=== PATIENT | female | born 1980 | race Caucasian/White ===

== ENCOUNTER 2017-07-29 17:30 | Outpatient (RCR) | payer OTHER, SELFPAY | END 2017-07-29 17:31 | disposition home or self-care (01) | LOC: PT 17:30 | PROVIDERS: Family Provider Nurse Practitioner Family; PCP Nurse Practitioner Family; Visit Provider Nurse Practitioner Family | DX: S16.1XXD Strain of muscle, fascia and tendon at neck level, subsequent encounter (principal) | CPT/HCPCS: 97010; 97012; 97014; 97110; 97140; 97164; G0283 ==

== ENCOUNTER → 2017-08-27 08:00 | Outpatient (CLI) | payer OTHER, SELFPAY ==
--- NOTE | 2017-08-27 08:03 | MR_ITS ---
MR cervical spine wo con, MR 3-d myelogram/MRCP HISTORY: Neck pain ORDERING PHYSICIAN: Maddison Watson PATIENT AGE: 37 years COMPARISON: Cervical X-Ray 05/11/17 TECHNIQUE: Standard multiplanar multiecho sequences are performed without contrast. 3-D MIP and myelographic images are also rendered and reviewed FINDINGS: There is straightening of the cervical lordosis. This may be due to patient positioning or muscle spasm. The craniocervical junction has an unremarkable appearance. C2-C3 and C3-C4 have an unremarkable appearance. C4-C5: There is minimal left paracentral disc protrusion without impingement. C5-C6: There is a small central disc herniation very slightly eccentric to the left causing mild impingement upon the central aspect of the cord with mild cord flattening anteriorly with resultant canal stenosis of 8 mm. C6-C7: Very minimal bulging disc with mild disc desiccation with congenital narrowing of the canal at 9 mm. C7-T1: Unremarkable. IMPRESSION: 1. Small central disc herniation at C5-C6 very slightly eccentric to the left causing mild impingement upon the central aspect of the cord with mild cord flattening anteriorly with resultant canal stenosis of 8 mm. 2. Minimal left paracentral disc protrusion at C4-C5. 3. Minimal bulging disc at C6-C7 with congenital narrowing of the canal
--- NOTE | 2017-08-27 08:59 | US_ITS ---
US kidney retroperitoneal comp HISTORY: ITS.REASON: EDEMA ORDERING PHYSICIAN: Maddison Watson PATIENT AGE: 37 years COMPARISON: None FINDINGS: RIGHT KIDNEY:Unremarkable. Normal size and echogenicity. No hydronephrosis LEFT KIDNEY:Unremarkable. No hydronephrosis. Normal size and echogenicity. OTHER FINDINGS: No other pertinent findings IMPRESSION: Unremarkable bilateral renal ultrasound
== END ==
PROVIDERS: Family Provider Nurse Practitioner Family; PCP Nurse Practitioner Family; Visit Provider Nurse Practitioner Family
DX: M54.2 Cervicalgia (principal); M54.12 Radiculopathy, cervical region; M43.6 Torticollis
CPT/HCPCS: 72141; 76376; 76770

== ENCOUNTER → 2017-10-15 13:35 | Outpatient (POV) | payer OTHER, SELFPAY | PROVIDERS: Visit Provider Neurological Surgery | DX: Z00.00 Encounter for general adult medical examination without abnormal findings (principal) ==

== ENCOUNTER → 2018-02-15 08:35 | Outpatient (CLI) | payer OTHER, SELFPAY ==
--- NOTE | 2018-02-15 08:37 | CA_ITS ---
PROCEDURE: 2-D M-mode and color Doppler study INDICATIONS FOR THE TEST: Chest pain COPD Heart Murmur Tobacco Smoking Palpitations Fatigue Syncope Edema+ Hypertension Diabetes Mellitus Rheumatic Fever SOB+CORONA Obesity+Hyperlipidemia Family History HD Additional History PATIENT INFORMATION HEIGHT: 63 WEIGHT:246 GENDER: Female B/P:133/86 2-D/M-MODE INTERPRETATION: 2-D MEASUREMENTS OBSERVED VALUES IN CMS Right Ventricular Dimension (RVDd) 2.2 Interventricular Septum (Thickness)(IVsd) 1.0 Left Ventricular Internal Dimensions(LVIDd) 5.0 Left Ventricular Posterior Wall (Thickness)(LVPWd) 0.5 Aortic Root 2.8 Aortic Cusp Separation 1.8 Left Atrial Dimensions (LAD) 3.4 2D 1. Left atrium is qualitatively mildly enlarged, left ventricle is normal size, left ventricle wall thickness is upper limit of normal, there is preserved left ventricular systolic function, visually estimated ejection fraction of 55% with no obvious regional wall motion abnormality. 2. The right atrium and right ventricle are normal size and contractility. 3. The aortic, mitral and tricuspid valve are structurally normal. 4. The pulmonic valve is poorly visualized. 5.. Pericardial effusion noted. DOPPLER INTERROGATION: Doppler interrogation of the aortic, mitral and tricuspid valvular presence of mild mitral and tricuspid regurgitation, tricuspid regurgitation jet velocity is insufficient for calculation of the right ventricular systolic pressure, grade 1 diastolic dysfunction seen with tissue Doppler evidence of raised left atrial pressure. CONCLUSION: 1. Mildly enlarged left atrium, normal left ventricular size, visually estimated ejection fraction 55% with no obvious regional wall motion abnormality, grade 1 diastolic dysfunction seen with tissue Doppler evidence of raised left atrial pressure. 2. Mild mitral and tricuspid regurgitation 3. No significant pericardial effusion noted.
== END ==
PROVIDERS: Family Provider Nurse Practitioner Family; PCP Family Medicine; Visit Provider Internal Medicine
DX: R06.02 Shortness of breath (principal); R00.0 Tachycardia, unspecified; R60.9 Edema, unspecified
CPT/HCPCS: 93306

== ENCOUNTER → 2018-02-22 18:22 | Outpatient (CLI) | payer OTHER, SELFPAY ==
[2018-02-22 18:39] LABS: Total Volume,Urine 2150 mL (600-1600)
[2018-02-22 18:47] LABS: Total Protein 24 Hour,Urine 142 mg/24 hr (40-90); Total Protein,Urine Random 6.6 mg/dL (0.0-11.9)
== END ==
PROVIDERS: PCP Family Medicine; Visit Provider Internal Medicine
DX: N05.9 Unspecified nephritic syndrome with unspecified morphologic changes (principal); R60.9 Edema, unspecified; R00.0 Tachycardia, unspecified; R06.02 Shortness of breath
CPT/HCPCS: 84155

== ENCOUNTER → 2018-04-08 15:26 | Outpatient (CLI) | payer OTHER, SELFPAY ==
[2018-04-08 16:52] LABS: Blood Urea Nitrogen 10 mg/dL (7-18); Calcium 8.9 mg/dL (8.5-10.1); Carbon Dioxide 26 mmol/L (21.0-32.0); Chloride 101 mmol/L (98-107); Creatinine,Serum 0.79 mg/dL (0.55-1.02); Estimated Glomerular Filt Rate 81 ml/min (>60); GFR (African American) 99 ML/MIN (>60); Glucose 89 mg/dL (74-106); Sodium 136 mmol/L (136-145)
== END ==
PROVIDERS: Family Provider Nurse Practitioner Family; PCP Family Medicine; Visit Provider Urology
DX: R06.02 Shortness of breath (principal); R60.0 Localized edema; I51.9 Heart disease, unspecified; E66.01 Morbid (severe) obesity due to excess calories
CPT/HCPCS: 36415; 80048

== ENCOUNTER → 2018-04-13 15:57 | Outpatient (CLI) | payer OTHER, SELFPAY ==
[2018-04-13 20:19] LABS: Free T4 (Free Thyroxine) 0.97 ng/dl (0.76-1.46)
== END ==
PROVIDERS: PCP Nurse Practitioner Family; Visit Provider Internal Medicine
DX: E66.01 Morbid (severe) obesity due to excess calories (principal); I34.0 Nonrheumatic mitral (valve) insufficiency; I51.9 Heart disease, unspecified; R00.0 Tachycardia, unspecified; R06.02 Shortness of breath; R60.0 Localized edema
CPT/HCPCS: 36415; 84439; 84443

== ENCOUNTER → 2018-04-14 08:06 | Outpatient (CLI) | payer OTHER, SELFPAY ==
--- NOTE | 2018-04-14 08:13 | NVE_ITS ---
Venous Exam Indications: Follow-up DVT 453.40. Pt had neck surgery January 04, went to in [place] 01/10/18 CT revealed DVT in right IJV. Pt been on warfarin since 01/10/18. IMPRESSIONS Chronic deep vein thrombosis. Right upper extremity venous duplex. Doppler flow study including spectral analysis, color and moss scale imaging. Location: Vascular laboratory. Patient status: Outpatient. Tables: Venous flow and imaging: + + + Location Overall + + + Right internal jugular Partially occluded + + + (Report amended ) Electronically signed by: Warren Coleman [id number]
== END ==
PROVIDERS: Family Provider Nurse Practitioner Family; PCP Nurse Practitioner Family; Visit Provider Internal Medicine Medical Oncology
DX: I82.C11 Acute embolism and thrombosis of right internal jugular vein (principal)
CPT/HCPCS: 93971

== ENCOUNTER → 2018-04-22 14:51 | Outpatient (CLI) | payer OTHER, SELFPAY ==
[2018-04-22 15:20] LABS: INR 1.82 (0.9-1.1); Prothrombin Time 18.4 seconds (9.4-11.8)
== END ==
PROVIDERS: PCP Nurse Practitioner Family; Visit Provider Internal Medicine Medical Oncology
DX: Z51.81 Encounter for therapeutic drug level monitoring (principal); Z79.01 Long term (current) use of anticoagulants; I82.C11 Acute embolism and thrombosis of right internal jugular vein
CPT/HCPCS: 36415; 85610

== ENCOUNTER → 2018-06-08 13:29 | Outpatient (CLI) | payer OTHER, SELFPAY | PROVIDERS: PCP Nurse Practitioner Family; Visit Provider Internal Medicine Medical Oncology | DX: I82.C11 Acute embolism and thrombosis of right internal jugular vein (principal) ==

== ENCOUNTER → 2018-07-01 13:57 | Outpatient (CLI) | payer OTHER, SELFPAY ==
[2018-07-01 15:52] LABS: Blood Urea Nitrogen 22 mg/dL (7-18); Calcium 9.7 mg/dL (8.5-10.1); Carbon Dioxide 29 mmol/L (21.0-32.0); Chloride 99 mmol/L (98-107); Creatinine,Serum 0.83 mg/dL (0.55-1.02); Estimated Glomerular Filt Rate 77 ml/min (>60); GFR (African American) 93 ML/MIN (>60); Glucose 89 mg/dL (74-106); Sodium 138 mmol/L (136-145)
== END ==
PROVIDERS: Visit Provider Urology
DX: R06.02 Shortness of breath (principal); I51.9 Heart disease, unspecified; R60.0 Localized edema
CPT/HCPCS: 36415; 80048; 83880

== ENCOUNTER → 2018-08-10 18:23 | Outpatient (CLI) | payer BC, SELFPAY ==
[2018-08-10 20:31] LABS: Total Protein,Urine Random 11.9 mg/dL (0.0-11.9)
[2018-08-13 07:19] LABS: PTT-LA 34.9 sec (0.0-51.9); dRVVT 50.1 sec (0.0-47.0); dRVVT Mix 43.1 sec (0.0-47.0)
[2018-08-13 12:26] LABS: Anti-Thrombin III Antigen 103 % (72-124); Antithrombin Activity 126 % (75-135); Factor VIII Activity 94 % (57-163); Lupus Reflex Interpretation Comment: (.)
[2018-08-13 17:20] LABS: Beta-2 Glycoprotein I Ab, IgA <9 (0-25); Beta-2 Glycoprotein I Ab, IgG <9 (0-20); Beta-2 Glycoprotein I Ab, IgM <9 (0-32)
[2018-09-12 17:33] LABS: Factor II, DNA Analysis NEGATIVE
== END ==
PROVIDERS: Visit Provider Internal Medicine Medical Oncology
DX: N05.9 Unspecified nephritic syndrome with unspecified morphologic changes (principal); R60.9 Edema, unspecified
CPT/HCPCS: 36415; 81240; 81241; 84155; 85240; 85300; 85301; 85613; 86146; 87086

== ENCOUNTER → 2020-04-04 07:40 | Outpatient (CLI) | payer BC, SELFPAY ==
--- NOTE | 2020-04-04 | MR_ITS ---
PROCEDURE: MR CERVICAL SPINE WO CON CLINICAL INDICATION: RADICULOPATHY Pt c/o neck pain and rt arm radiculopathy with rt finger numbness. Pt denies trauma or injury. Pt did have cervical surgery in 2018. prior mri c-spine 08/2017 COMPARISON: MR SPCERVWO MR cervical spine wo con from 08/27/2017 TECHNIQUE: Standard multiplanar multiecho sequences are performed without contrast. 3-D MIP and myelographic images are also rendered and reviewed FINDINGS: There is normal alignment. The cranial cervical junction has an unremarkable appearance. There is a area of increased T1 and T2 signal involving the clivus measuring approximately 9 mm consistent with a lipoma. C2-C3: Unremarkable. C3-C4: Unremarkable. C4-C5: Minimal bulging disc eccentric to the left. There is some minimal flattening of the cord anteriorly on the left better detected on the axial images. There is significant artifact at this level as well somewhat obscuring fine detail. C5-C6: Prior anterior cervical disc fusion. No canal stenosis. C6-C7: Sagittal images demonstrates a bulging disc at this level causing some mild flattening of the cord anteriorly with narrowing of the canal at 8 mm. This appears slightly more prominent. C7-T1: There is a small left paracentral disc protrusion causing mild left lateral recess narrowing. The spinal cord has unremarkable signal intensity. IMPRESSION: 1. Prior anterior cervical disc fusion at C5-C6 causing moderate degree of artifact. Normal alignment at this level without obvious extradural defect. 2. C4-C5: Minimal bulging disc eccentric to the left. There is some minimal flattening of the cord anteriorly on the left better detected on the axial images. There is significant artifact at this level as well somewhat obscuring fine detail. 3. C5-C6: Prior anterior cervical disc fusion. No canal stenosis. 4. C6-C7: Sagittal images demonstrates a bulging disc at this level causing some mild flattening of the cord anteriorly with narrowing of the canal at 8 mm. This appears slightly more prominent. Axial images obscured from metallic artifact 5. C7-T1: There is a small left paracentral disc protrusion causing mild left lateral recess narrowing. Dictated by: Stephon Noel MD 04/07/2020 08:47 Stephon Noel MD in [place] 04/07/2020 08:47
== END ==
PROVIDERS: PCP Family Medicine; Visit Provider Nurse Practitioner Family
DX: M54.12 Radiculopathy, cervical region (principal)
CPT/HCPCS: 72141; 76376

== ENCOUNTER → 2020-07-31 14:46 | Outpatient (CLI) | payer BC, SELFPAY ==
[2020-07-31 15:08] LABS: Basophils # 0.1 K/mm3 (0-0.2); Eosinophils # 0.2 K/mm3 (0.0-0.4); Eosinophils % 1.7 % (0.1-12.0); Hematocrit 39.3 % (37.0-47.0); Hemoglobin 13.7 g/dL (12.2-16.2); Lymphocytes # 2.9 K/mm3 (0.7-4.5); Lymphocytes % 31.3 % (10-50); Mean Corpuscular HGB Conc 34.9 g/dL (31.8-35.4); Mean Corpuscular Hemoglobin 29.9 pg (27.0-31.2); Mean Corpuscular Volume 85.5 fl (81-99); Mean Platelet Volume 8.3 fl (7.4-10.4); Monocytes # 0.5 K/mm3 (0.1-1.0); Monocytes % 5.3 % (1.7-9.3); Neutrophils # 5.6 K/mm3 (1.8-7.8); Neutrophils % 60.7 % (37.0-80.0); Platelet Count 393 K/mm3 (142-424); Red Cell Distribution Width 13.4 % (11.5-17.5); White Blood Count 9.2 K/mm3 (4.8-10.8)
[2020-07-31 16:19] LABS: Chloride 103 mmol/L (98-107); Potassium 4.5 mmoL/L (3.5-5.1); Sodium 136 mmol/L (136-145)
[2020-07-31 16:21] LABS: Blood Urea Nitrogen 19 mg/dl (7-17); Estimated Glomerular Filt Rate 92 ml/min (>60); GFR (African American) 112 ML/MIN (>60)
[2020-07-31 16:22] LABS: Alanine Aminotransferase 42 U/L (12-78); Albumin Level 4.7 g/dl (3.5-5.0); Alkaline Phosphatase 91 U/L (38-126); Anion Gap 13.5 mEq/L (5-15); Aspartate Amino Transferase 33 U/L (14-36); Bilirubin,Direct 0.3 mg/dl (0.0-0.4); Bilirubin,Total 0.3 mg/dl (0.2-1.3); Calcium 9.8 mg/dl (8.4-10.2); Carbon Dioxide 24 mmol/L (22.0-30.0); Chol/HDL Ratio 4.4 (1-3.5); Cholesterol 196 mg/dl (140-200); Glucose 93 mg/dl (74-100); HDL Cholesterol 45 mg/dl (40-60); Total Protein,Serum 7.6 g/dl (6.3-8.2); Triglycerides 272 mg/dl (30-150); VLDL Cholesterol 54 mg/dL (0-40)
[2020-07-31 16:38] LABS: Free T4 (Free Thyroxine) 1.08 ng/dl (0.78-2.19)
[2020-07-31 16:52] LABS: Thyroid Stimulating Hormone 1.62 uIU/mL (0.465-4.68)
== END ==
PROVIDERS: Visit Provider Physician Assistant
DX: Z01.818 Encounter for other preprocedural examination (principal); I11.9 Hypertensive heart disease without heart failure; I51.89 Other ill-defined heart diseases; R60.0 Localized edema; E11.9 Type 2 diabetes mellitus without complications; E66.01 Morbid (severe) obesity due to excess calories
CPT/HCPCS: 36415; 80048; 80061; 80076; 84439; 84443; 85025

== ENCOUNTER → 2021-05-29 19:26 | Outpatient (CLI) | payer BC, SELFPAY ==
--- NOTE | 2021-05-29 19:35 | XR_ITS ---
PROCEDURE INFORMATION: Exam: XR Right Hip Exam date and time: 05/29/2021 7:35 PM Age: 40 years old Clinical indication: Patient HX: Right hip pain, no injury per patient. TECHNIQUE: Imaging protocol: XR Right hip. Views: 2 or 3 views hip with pelvis when performed. COMPARISON: ABDPELW/O CT ABD PELVIS W/O CONTRAST 11/28/2014 12:43 PM FINDINGS: Bones/joints: Normal. Soft tissues: Unremarkable. IMPRESSION: No acute findings.
== END ==
LOC: RAD 19:28
PROVIDERS: PCP Nurse Practitioner Family; Visit Provider Nurse Practitioner Family
DX: M25.551 Pain in right hip (principal)
CPT/HCPCS: 73502

== ENCOUNTER → 2021-08-13 13:44 | Outpatient (CLI) | payer BC, SELFPAY ==
--- NOTE | 2021-08-13 13:48 | CA_ITS ---
APPROVED REPORT EXAM: Comprehensive 2D, Doppler, and color-flow Echocardiogram Balancing Machine Operator: Stephanie Steele, RCS, RVS Ht: 5 ft 3 in Wt: 282lbs BSA: 2.24 BP: 143/91 mmHg Indications: post COVID 01/2021 persistant SOA, Morbid obesity, Edema Echo Enhancing Agent Comments: Poor acoustic windows due to extreme body habitus and lung impedence 2D Dimensions Left Atrium 2.89 cm LA Volume 35.20 mL LVOT 2.05 cm (M/F) 1.5-2.5 LA Volume Index 15.70 mL/m2 (M/F) 16-34 M-Mode Dimensions RVDd 2.22 cm (0.9-2.6) LA Diam 3.64 cm (1.9-4.0) LVDd 4.66 cm (3.5-5.7) Ao Diam 2.63 cm (2.0-3.7) LVDs 3.41 cm (3.5-5.7) IVSd 1.00 cm (0.6-1.1) PWd 1.08 cm (0.6-1.1) EF (Teich) 52.30% EPSs 0.43 cm FS 26.80% EDV (Teich) 100.30 mL TAPSE 2.50 (<1.7) ESV (Teich) 47.80 mL LV Diastology E Decel Time 183.00 (160-240 msec) E/A Ratio 1.87 MED E' 11.30 (< 7 cm/sec) MED A' 13.50 cm/s E'/MED E' Ratio 8.90 (>14) LAT E' 9.70 (<10 cm/sec) LAT A' 13.70 cm/s E/LAT E' Ratio 10.37 (>14) Aortic Valve LVOT Max 152.00 (70-110 cm/s) LVOT VTI 30.86 cm AoV Peak Ryan. 192.00 (50-130 cm/s) AO Peak GR. 14.80 mmHg AO Mean GR. 7.90 (<5 mmHg) AO VTI 37.29 (18-25 cm) BERNARDO (VTI) 2.73 (2.5-4.5 cm2) Mitral Valve MV A Velocity 54.00 (40-130 cm/s) E/A Ratio 1.87 MV Decel. Time 183.00 (160-240 ms) MV Mean Gr. 2.00 (<2mmHg) MV PHT 53.00 ms Pulmonary Valve PV Peak Velocity 116.00 (50-150 cm/s) Tricuspid Valve TR P. Velocity 227.00 cm/s RAP Estimate 10.00 mmHg RVSP 30.50 mmHg Left Ventricle Left atrium normal size, left ventricle is normal size, visually estimated ejection fraction 55% with no regional wall motion abnormality, diastolic parameters are within normal range. Right Ventricle Right atrium and right ventricle are normal size and contractility. Aortic Valve Aortic valve is grossly normal, there is no aortic stenosis or aortic insufficiency. Mitral Valve Mitral valve grossly normal, there is trace mitral regurgitation. Tricuspid Valve Tricuspid valve grossly normal, there is trace tricuspid regurgitation, tricuspid regurgitation jet versus inadequate for calculation of the right ventricular systolic pressure. Pulmonic Valve Pulmonic valve is poorly visualized. Great Vessels Aortic root is normal size. Inferior vena cava normal size with normal inspiratory collapse. Pericardium No significant pericardial effusion. Conclusion 1. Normal left ventricular size, preserved left ventricular systolic function, visually estimated ejection fraction 55% with no regional wall motion abnormality, diastolic parameters are within normal range. 2. Trace mitral and tricuspid regurgitation. 3. No significant pericardial effusion. 4. Inferior vena cava normal size with normal inspiratory collapse. Electronically signed by : Shayan Maria MD 08/13/2021 19:22:53
== END ==
LOC: RT 13:48
PROVIDERS: PCP Nurse Practitioner Family; Visit Provider Physician Assistant
DX: Z01.818 Encounter for other preprocedural examination (principal); R06.09 Other forms of dyspnea; I50.30 Unspecified diastolic (congestive) heart failure; R60.0 Localized edema; E66.01 Morbid (severe) obesity due to excess calories; Z68.42 Body mass index [BMI] 45.0-49.9, adult
CPT/HCPCS: 93306

== ENCOUNTER → 2021-08-23 19:07 | Outpatient (CLI) | payer BC, SELFPAY | LOC: SL 19:09 | PROVIDERS: PCP Nurse Practitioner Family; Visit Provider Physician Assistant | DX: G47.33 Obstructive sleep apnea (adult) (pediatric) (principal); R40.0 Somnolence; R06.83 Snoring; E66.01 Morbid (severe) obesity due to excess calories; Z68.43 Body mass index [BMI] 50.0-59.9, adult; R09.02 Hypoxemia | CPT/HCPCS: G0399 ==

== ENCOUNTER → 2021-10-08 09:06 | Outpatient (CLI) | payer BC, SELFPAY ==
--- NOTE | 2021-10-08 09:14 | XR_ITS ---
FINAL REPORT CLINICAL HISTORY: CTS FINDINGS: 3 views of the right wrist were obtained. There is no acute fracture or dislocation. The joint spaces are intact. There is no soft tissue abnormality. IMPRESSION: No acute abnormality. Reviewed, Interpreted and Dictated by Jose Bishop MD Transcribed by Beni Grissom Authenticated by Jose Bishop MD on 10/08/2021 11:38:39 AM [facility]
--- NOTE | 2021-10-08 09:14 | XR_ITS ---
FINAL REPORT CLINICAL HISTORY: CTS FINDINGS: 3 views of the left wrist were obtained. There is no acute fracture or dislocation. The joint spaces are intact. There is no soft tissue abnormality. IMPRESSION: No acute abnormality. Reviewed, Interpreted and Dictated by Jose Bishop MD Transcribed by Beni Grissom Authenticated by Jose Bishop MD on 10/08/2021 11:38:43 AM [facility]
== END ==
LOC: RAD 09:07
PROVIDERS: PCP Nurse Practitioner Family; Visit Provider Orthopaedic Surgery
DX: M25.532 Pain in left wrist (principal); M25.531 Pain in right wrist
CPT/HCPCS: 73110

== ENCOUNTER 2021-10-08 11:24 | Outpatient (RCR) | payer BC, SELFPAY | END 2021-10-08 12:00 | disposition home or self-care (01) | LOC: OT 11:24 | PROVIDERS: Visit Provider Orthopaedic Surgery | DX: G56.03 Carpal tunnel syndrome, bilateral upper limbs (principal) | CPT/HCPCS: 97763 ==

== ENCOUNTER → 2021-12-10 21:13 | Outpatient (CLI) | payer BC, SELFPAY | LOC: RT 21:15 | PROVIDERS: PCP Nurse Practitioner Family; Visit Provider Nurse Practitioner Family | DX: G47.33 Obstructive sleep apnea (adult) (pediatric) (principal); G47.34 Idiopathic sleep related nonobstructive alveolar hypoventilation | CPT/HCPCS: 94762 ==

== ENCOUNTER → 2022-04-25 09:15 | Outpatient (CLI) | payer BC, SELFPAY ==
--- NOTE | 2022-04-25 09:18 | MR_ITS ---
FINAL REPORT CLINICAL HISTORY: RIGHT SIDE LOW BACK PAIN FINDINGS: Multiplanar MR imaging of the lumbar spine was performed without contrast. On the sagittal T2-weighted images, disc degeneration is seen at L4-L5 and L5-S1. The vertebral alignment is normal. There is no evidence of fracture. There are multiple hemangiomas. There is overall decreased signal in the bone marrow that is nonspecific. The conus has an unremarkable appearance. No significant canal stenosis is identified. L1-2: There is no significant canal stenosis or neural foraminal narrowing. L2-3: There is no significant canal stenosis or neural foraminal narrowing. L3-4: There is no significant canal stenosis or neural foraminal narrowing. L4-5: An annular bulge is present. There is no significant canal stenosis or neural foraminal narrowing. L5-S1: Small central disc protrusion. There is mild bilateral neural foraminal narrowing. There is a 29 mm low signal focus in the midline pelvis that is partially imaged. IMPRESSION: Small central disc protrusion with mild bilateral neural foraminal narrowing at L5-S1. Overall decreased signal in the bone marrow as a nonspecific finding. This can be seen with diffuse infiltrative processes. Partially imaged decreased signal focus in the midline pelvis. Uncertain if this represents a subserosal fibroid or other mass. Consider CT with contrast. Reviewed, Interpreted and Dictated by Darryl Khan III, MD Transcribed by Beni Grissom Authenticated and . [facility]
== END ==
PROVIDERS: PCP Nurse Practitioner Family; Visit Provider Nurse Practitioner Family
DX: M54.50 Low back pain, unspecified (principal)
CPT/HCPCS: 72148; 76376

== ENCOUNTER → 2022-05-02 13:47 | Outpatient (CLI) | payer BC, SELFPAY ==
--- NOTE | 2022-05-02 13:52 | CT_ITS ---
FINAL REPORT TECHNIQUE: Axial images were obtained from the iliac crest to the pubic symphysis by computed tomography pre-and postcontrast administration. Coronal and sagittal reformats were submitted. This study was performed with techniques to keep radiation doses as low as reasonably achievable (ALARA). Individualized dose reduction techniques using automated exposure control or adjustment of mA and/or kV according to the patient''s size were employed. CLINICAL HISTORY: ABNORMAL MRI, POSS FIBROID COMPARISON: MRI from 04/25/2022 FINDINGS: Pelvis: The partially imaged liver demonstrates mild fatty infiltration. The appendix is normal. The urinary bladder is unremarkable. There is no significant free fluid or adenopathy. No uterine mass is identified. There are small foci of enhancement in the right ovary of uncertain significance. There are small presumed cysts in the ovaries. IMPRESSION: No uterine mass. Small presumed ovarian cysts. Small foci of enhancement in the right ovary of uncertain significance. Reviewed, Interpreted and Dictated by Darryl Khan III, MD Transcribed by Beni Grissom Authenticated and [facility]
== END ==
LOC: RAD 13:47
PROVIDERS: PCP Nurse Practitioner Family; Visit Provider Nurse Practitioner Family
DX: R93.89 Abnormal findings on diagnostic imaging of other specified body structures (principal)
CPT/HCPCS: 72194; Q9967

== ENCOUNTER → 2022-12-15 08:12 | Outpatient (CLI) | payer BC, SELFPAY ==
--- NOTE | 2022-12-15 08:24 | US_ITS ---
FINAL REPORT CLINICAL HISTORY: MASS FINDINGS: Ultrasound examination soft tissues of the neck: Ultrasound examination of the soft tissues of the neck reveal normal-appearing parotid and submandibular glands bilaterally. There is a complex hypoechoic mass inferior to the mandible measuring 3.7 cm in maximum dimension. The exam is not labeled to determine which side this mass is on. There are multiple sub cm normal-appearing nodes present. IMPRESSION: Complex mass inferior to the mandible measuring 3.7 cm in maximum dimension. Would recommend CT with intravenous contrast for further evaluation. Reviewed, Interpreted and Dictated by Jose Bishop MD Transcribed by Anabel Boyer Authenticated and [facility]
== END ==
PROVIDERS: PCP Nurse Practitioner Family; Visit Provider Nurse Practitioner Family
DX: R22.1 Localized swelling, mass and lump, neck (principal)
CPT/HCPCS: 76536

== ENCOUNTER → 2022-12-19 07:01 | Outpatient (CLI) | payer BC, SELFPAY ==
--- NOTE | 2022-12-19 07:05 | CT_ITS ---
FINAL REPORT TECHNIQUE: Thin section axial CT images with coronal reformats were obtained through the neck after the administration of IV contrast. This study was performed with techniques to keep radiation doses as low as reasonably achievable (ALARA). Individualized dose reduction techniques using automated exposure control or adjustment of mA and/or kV according to the patient''s size were employed. CLINICAL HISTORY: MASS IN NECK FINDINGS: A marker was placed over the submandibular region to localize a palpable mass. CT examination through this area does not reveal any definite focal mass. There is subcutaneous fat present as well as adjacent musculature. That musculature may represent the questionable mass which was palpated. The thyroid is unremarkable. Limited images of the lung apices are unremarkable. The glottis and supraglottic areas are unremarkable. No acute osseous abnormality is identified. There is evidence of a previous anterior interbody cervical fusion at the C5-6 level. IMPRESSION: No focal mass is identified in the area of interest. Subcutaneous fat and adjacent muscle may have accounted for the questionable palpable mass. Reviewed, Interpreted and Dictated by Jose Bishop MD Transcribed by Anabel Boyer Authenticated and [facility]
== END ==
LOC: RAD 07:02
PROVIDERS: PCP Nurse Practitioner Family; Visit Provider Nurse Practitioner Family
DX: R22.1 Localized swelling, mass and lump, neck (principal)
CPT/HCPCS: 70491; Q9967

== ENCOUNTER → 2023-04-01 07:47 | Outpatient (CLI) | payer BC, SELFPAY ==
--- NOTE | 2023-04-01 07:58 | MM_ITS ---
PROCEDURE INFORMATION: Exam: MG Bilateral Screening 3D Mammography Exam date and time: 04/01/2023 7:53 AM Age: 42 years old Clinical indication: Screening examination; No personal or family history of breast cancer TECHNIQUE: Imaging protocol: Bilateral Screening tomosynthesis and 2D mammography including computer-aided detection (CAD) when performed. COMPARISON: No relevant prior studies available. FINDINGS: MAMMOGRAPHY: Breast composition: The breasts are heterogeneously dense, which may obscure small masses. Mass: Questionable 1.2 cm mass in the middle third of the right upper outer quadrant. 1.6 cm questionable ovoid mass in the posterior third of the right upper breast only well seen in the MLO projection Architectural distortion: None. Calcifications: No suspicious calcifications. Asymmetric density: None. Skin thickening: None. Axillary adenopathy: None. IMPRESSION: Patient to be recalled for spot compression views of the right breast in the CC, exaggerated lateral cc and MLO projections, a full 90 degree lateral view, and right breast ultrasound for further evaluation of 2 right breast masses. ASSESSMENT: BI-RADS Category 0: Incomplete- Need Additional Imaging Evaluation and/or Prior Mammograms for Comparison
[2023-04-01 08:02] LABS: Basophils # 0.1 K/mm3 (0-0.2); Basophils % 1.1 % (0.1-2.0); Eosinophils # 0.2 K/mm3 (0.0-0.4); Eosinophils % 2.4 % (0.1-12.0); Hematocrit 44.9 % (37.0-47.0); Hemoglobin 14.7 g/dL (12.2-16.2); Lymphocytes # 2.2 K/mm3 (0.7-4.5); Lymphocytes % 29.1 % (10-50); Mean Corpuscular HGB Conc 32.7 g/dL (31.8-35.4); Mean Corpuscular Volume 85.8 fl (81-99); Mean Platelet Volume 9.1 fl (7.4-10.4); Monocytes # 0.4 K/mm3 (0.1-1.0); Monocytes % 5.2 % (1.7-9.3); Neutrophils # 4.7 K/mm3 (1.8-7.8); Platelet Count 405 K/mm3 (142-424); Red Blood Count 5.23 M/mm3 (4.20-5.40); Red Cell Distribution Width 13.1 % (11.5-17.5); White Blood Count 7.6 K/mm3 (4.8-10.8)
[2023-04-01 10:00] LABS: Alanine Aminotransferase 52 U/L (12-78); Alkaline Phosphatase 74 U/L (38-126); Anion Gap 19.7 mEq/L (5-15); Aspartate Amino Transferase 41 U/L (14-36); Bilirubin,Direct 0.2 mg/dl (0.0-0.4); Bilirubin,Indirect 0.1 mg/dL (0.0-0.9); Bilirubin,Total 0.3 mg/dl (0.2-1.3); Bilirubin,Unconjugated 0.1 mg/dL (0.0-1.1); Blood Urea Nitrogen 18 mg/dl (7-17); Calcium 10.2 mg/dl (8.4-10.2); Carbon Dioxide 29 mmol/L (22.0-30.0); Chloride 99 mmol/L (98-107); Chol/HDL Ratio 5.4 (1-3.5); Cholesterol 193 mg/dl (140-200); Estimated Glomerular Filt Rate 61 ml/min (>60); GFR (African American) 73 ML/MIN (>60); Glucose 134 mg/dl (74-100); HDL Cholesterol 36 mg/dl (40-60); Magnesium 2.1 mg/dl (1.6-2.3); Potassium 4.7 mmoL/L (3.5-5.1); Sodium 143 mmol/L (136-145); Total Protein,Serum 8.3 g/dl (6.3-8.2); Triglycerides 194 mg/dl (30-150); VLDL Cholesterol 39 mg/dL (0-40)
[2023-04-01 10:13] LABS: Direct LDL Cholesterol 121.87 mg/dL (100-129)
[2023-04-01 10:19] LABS: Free T4 (Free Thyroxine) 1.17 ng/dl (0.78-2.19)
[2023-04-01 10:33] LABS: Thyroid Stimulating Hormone 1.26 uIU/mL (0.465-4.68)
== END ==
PROVIDERS: Nurse Practitioner Family; PCP Family Medicine; Visit Provider Family Medicine
DX: Z12.31 Encounter for screening mammogram for malignant neoplasm of breast (principal); I10 Essential (primary) hypertension; I51.9 Heart disease, unspecified; R60.9 Edema, unspecified; E66.01 Morbid (severe) obesity due to excess calories; Z68.43 Body mass index [BMI] 50.0-59.9, adult
CPT/HCPCS: 36415; 77063; 77067; 80048; 80061; 80076; 83735; 84439; 84443; 85025

== ENCOUNTER → 2023-05-06 15:03 | Outpatient (CLI) | payer BC, SELFPAY ==
--- NOTE | 2023-05-06 15:07 | MM_ITS ---
PROCEDURE INFORMATION: Exam: US Right Breast, Complete MG Right Diagnostic Breast Tomosynthesis Exam date and time: 05/06/2023 4:10 PM Age: 42 years old Clinical indication: Patient recalled on the basis of a screening mammogram for further evaluation; Right breast; Abnormal findings on imaging; Additional info: Abn mamm TECHNIQUE: Imaging protocol: Complete ultrasound of all four quadrants of the right breast and the retroareolar regions, including ultrasound of the axilla when performed. Right Diagnostic tomosynthesis and 2D mammography including computer-aided detection (CAD) when performed. Unilateral or bilateral exam. COMPARISON: MG MM DIG MAMM DX UNILAT RT CAD 05/06/2023 2:55 PM FINDINGS: MAMMOGRAPHY: Digital diagnostic spot compression views of the right breast and 90 degree lateral view of the right breast demonstrate normal overlapping fibroglandular structures posteriorly without persistent mass or asymmetry identified. Digital diagnostic spot compression views of the middle third of the right upper outer quadrant demonstrates slight persistent nonspecific nodular tissue without definite discrete mass lesion seen. The area of interest measures 1.2 cm in greatest dimension. ULTRASOUND: Sonographic images of the right breast including the retroareolar region, all 4 quadrants and the axilla demonstrates cursors over a questionable hypoechoic solid mass versus a prominent fat lobule in the 11 o'clock axis 4 cm from the nipple. Its borders are only partially circumscribed. It does however appear to correspond to the slightly nodular tissue seen on mammography. It measures 0.8 x 0.9 x 0.8 cm in dimension. No other solid or cystic masses are noted. No architectural distortion or acoustical shadowing. No skin thickening or axillary adenopathy. IMPRESSION: Slight persistent nodular tissue in the middle third of the right upper outer quadrant seen on mammography and likely on sonography as well. Given its morphology, a precautionary ultrasound-guided core biopsy of the right breast with clip placement and post biopsy right mammogram are recommended for further evaluation as well as to assess for accurate correlation between the mammographic and sonographic findings. ASSESSMENT: BI-RADS Category 4: Suspicious
== END ==
PROVIDERS: PCP Family Medicine; Visit Provider Nurse Practitioner
DX: R92.8 Other abnormal and inconclusive findings on diagnostic imaging of breast (principal)
CPT/HCPCS: 76641; 77061; 77065; G0279

== ENCOUNTER → 2023-05-13 10:32 | Outpatient (CLI) | payer BC, SELFPAY ==
--- NOTE | 2023-05-13 | US_ITS ---
FINAL REPORT CLINICAL HISTORY: RT BREAST 1100 -- DR. JOY ORTEGA -- RT BREAST CORE BX -- 11:00 FINDINGS: ULTRASOUND-GUIDED RIGHT BREAST CORE BIOPSY TECHNIQUE: Limited images were obtained to localize region of interest. The right breast was prepped in a routine sterile fashion and locally anesthetized with 1% lidocaine. Standard written informed consent was obtained. An 11-gauge vacuum assisted hand-held device was utilized. The needle was positioned posterior to the lesion. Multiple vacuum assisted core samples were obtained. The lesion was noted to be significantly smaller following biopsy. A biopsy marker clip was deployed in satisfactory position. Postbiopsy mammogram showed postbiopsy changes with clip in satisfactory position. Procedure was well tolerated . CONCLUSION: 1. Technically successful ultrasound guided vacuum assisted core biopsy of right breast lesion as above. 2. Biopsy marker clip deployed Histopathology results reveal benign findings. Pathology is concordant with mammographic findings. Recommend 6 month mammographic and sonographic follow-up as routine benign postbiopsy surveillance. Authenticated and [facility]
--- NOTE | 2023-05-13 10:45 | MM_ITS ---
FINAL REPORT CLINICAL HISTORY: post us breast bx, ultrasound-guided breast biopsy FINDINGS: MAMMOGRAM RIGHT TECHNIQUE: Standard digital 2-D views COMPARISON: None DENSITY: There are scattered areas of fibroglandular density FINDINGS: Post biopsy marker clip is noted to be in satisfactory position within the central right breast at 12:00.. Postbiopsy changes are noted. IMPRESSION: Biopsy marker clip in good position RECOMMENDATION: Given benign findings on biopsy, six-month mammographic and sonographic follow-up recommended as part of normal benign biopsy surveillance Authenticated and [facility]
== END ==
PROVIDERS: PCP Nurse Practitioner; Visit Provider Family Medicine
DX: R92.8 Other abnormal and inconclusive findings on diagnostic imaging of breast (principal)
CPT/HCPCS: 19083; 77065; C2618

== ENCOUNTER 2023-05-16 19:22 | Emergency (ER) | payer BC, SELFPAY ==
[2023-05-16 19:45] VITALS: BP 159/97; PULSE 92; RESP 22; TEMP 37.1; O2SAT 95; BMI 48.2
[2023-05-16 19:48] LABS: Apearance,Urine Clear (Clear); Bilirubin,Urine Negative (Negative); Blood, Urine Negative (Negative); Color,Urine Yellow (Yellow); Glucose,Urine (UA) Negative (Negative); Ketones,Urine Negative (Negative); PH,Urine 5.5 (5.0-8.5); Protein,Urine Negative (Negative); Urobilinogen,Urine 0.2 EU/dl (0.2)
[2023-05-16 19:49] LABS: UTC Leukocyte Esterase,Urine Negative (Negative); UTC Nitrate,Urine Negative (Negative)
--- NOTE | 2023-05-16 19:50 | EXP.UTC ---
Discharge Plan Disposition Patient Disposition: Home, Self-Care Condition: Good Prescriptions Prescriptions: New benzonatate [benzonatate] 100 mg capsule 100 mg PO TIDP PRN (Reason: Cough) Qty: 30 0RF methylprednisolone 4 mg Tablets,Dose Pack 4 mg PO DIRECTED Qty: 21 0RF cefdinir 300 mg capsule 300 mg PO BID Qty: 20 0RF No Action aspirin 81 mg tablet,delayed release (DR/EC) 81 mg PO DAILY Women's Multivitamin 18 mg-400 mcg- 500 mg-50 mcg tablet 1 tab PO DAILY Ozempic 0.25 mg or 0.5 mg(2 mg/1.5 mL) pen injector 2 mg SQ WEEKLY Patient Comments: INJECT 0.25MG SUBCUTANEOUSLY ONCE WEEKLY fenofibrate nanocrystallized 145 mg tablet 145 mg PO DAILY Qty: 30 11RF torsemide 100 mg tablet 100 mg PO DAILY 90 Days Qty: 90 3RF bisoprolol fumarate 10 mg tablet See Rx Instructions .ROUTE .COMPLEX Qty: 60 1RF Dose Instruction: Take 1 tablet by mouth twice daily Rx Instructions: Take 1 tablet by mouth twice daily spironolactone [Aldactone] 100 mg tablet 100 mg PO BID Qty: 60 5RF Rx Instructions: take one tablet by mouth twice daily Referrals Follow up/Referrals: Fozia Diane APRN [Primary Care Provider] - See instructions Activity Restrictions/Add. Instructions Additional Instructions/Restrictions: Drink plenty of fluids. Take tylenol or ibuprofen for pain or fever. Take the medications as directed. Follow up with your regular doctor. GO TO THE ER FOR ANY WORSENING SYMPTOMS Clinical Impressions Clinical Impression: Acute bronchitis Instructions Patient Instructions: Acute Bronchitis, DI for Acute Bronchitis Discharge ED Provider: Jose Armando Greenberg [facility] General Stated complaint: poss UTI, ariana Time Seen by Provider: 05/16/23 19:50 History of Present Illness Provider Complaint: She states that for the past 2 weeks she has had sinus congestion. She states that his symptoms are worsening. Related Data Home Medications Medication Instructions Recorded Confirmed aspirin 81 mg tablet,delayed 81 mg PO DAILY 04/05/19 04/01/23 release [id number] 18 mg-FA 400 1 tab PO DAILY 11/20/21 04/01/23 mcg-calcium 500 mg-vit K 50 mcg tablet (Women's Multivitamin) semaglutide 0.25 mg or 0.5 mg (2 2 mg SQ WEEKLY 03/19/23 04/01/23 mg/1.5 mL) subcutaneous pen injector (Ozempic) Previous Rx's Medication Instructions Recorded bisoprolol fumarate 10 mg tablet See Rx Instructions .Route 09/01/22 .COMPLEX #60 tabs spironolactone 100 mg tablet 100 mg PO BID #60 tabs 03/10/23 (Aldactone) fenofibrate nanocrystallized 145 145 mg PO DAILY #30 tabs 03/19/23 mg tablet torsemide 100 mg tablet 100 mg PO DAILY 90 days #90 tabs 04/01/23 benzonatate 100 mg capsule 100 mg PO TIDP PRN Cough #30 caps 05/16/23 cefdinir 300 mg capsule 300 mg PO BID #20 caps 05/16/23 methylprednisolone 4 mg tablets in 4 mg PO DIRECTED #21 tabs 05/16/23 a dose pack Allergies Allergy/AdvReac Type Severity Reaction Status Date / Time codeine [CODEINE] Allergy Mild Verified 04/01/23 08:51 [facility] Disclaimer: The information contained in this section may have been updated after the patient was seen, as this information can be updated by other users. Medical History Edema HTN (hypertension) Nephritic syndrome KATHYA on CPAP Preoperative clearance SOB (shortness of breath) Tachycardia Social History Smoking Status: Never smoker alcohol intake: never substance use type: denies use current occupational status: employed Travel in the last 8 weeks: None household members: spouse and children housing: house ROS Obtained: Yes All systems reviewed & no additional complaints except as documented Constitutional Constitutional: Reports poor appetite Eyes Eyes: Reports system reviewed and no additional comp
[2023-05-16 20:00] VITALS: BP 159/97; PULSE 92; RESP 22; TEMP 37.1; O2SAT 95
== END 2023-05-16 20:05 | disposition home or self-care (01) ==
PROVIDERS: Emergency Provider Nurse Practitioner Family; PCP Nurse Practitioner
DX: J20.9 Acute bronchitis, unspecified (principal); R09.81 Nasal congestion; R05.9 Cough, unspecified
CPT/HCPCS: 81003; 99204; 99212; G0463

== ENCOUNTER 2023-07-02 09:46 | Outpatient (CLI) | payer BC, SELFPAY ==
[2023-07-02 10:13] LABS: Basophils # 0.1 K/mm3 (0-0.2); Basophils % 1.1 % (0.1-2.0); Eosinophils # 0.1 K/mm3 (0.0-0.4); Eosinophils % 0.8 % (0.1-12.0); Hematocrit 41.6 % (37.0-47.0); Hemoglobin 14.2 g/dL (12.2-16.2); Lymphocytes # 2.2 K/mm3 (0.7-4.5); Lymphocytes % 21.2 % (10-50); Mean Corpuscular HGB Conc 34.1 g/dL (31.8-35.4); Mean Corpuscular Hemoglobin 30.1 pg (27.0-31.2); Mean Corpuscular Volume 88.1 fl (81-99); Mean Platelet Volume 9.1 fl (7.4-10.4); Monocytes # 0.5 K/mm3 (0.1-1.0); Monocytes % 5.1 % (1.7-9.3); Neutrophils # 7.3 K/mm3 (1.8-7.8); Neutrophils % 71.8 % (37.0-80.0); Platelet Count 394 K/mm3 (142-424); Red Blood Count 4.72 M/mm3 (4.20-5.40); Red Cell Distribution Width 13.7 % (11.5-17.5); White Blood Count 10.1 K/mm3 (4.8-10.8)
[2023-07-02 10:34] LABS: Chloride 102 mmol/L (98-107); Potassium 4.3 mmoL/L (3.5-5.1); Sodium 141 mmol/L (136-145)
[2023-07-02 10:36] LABS: Blood Urea Nitrogen 13 mg/dl (7-17)
[2023-07-02 10:37] LABS: Alanine Aminotransferase 58 U/L (12-78); Alkaline Phosphatase 57 U/L (38-126); Anion Gap 17.3 mEq/L (5-15); Aspartate Amino Transferase 50 U/L (14-36); Bilirubin,Direct 0.1 mg/dl (0.0-0.4); Bilirubin,Indirect 0.3 mg/dL (0.0-0.9); Bilirubin,Total 0.4 mg/dl (0.2-1.3); Bilirubin,Unconjugated 0.3 mg/dL (0.0-1.1); Calcium 9.5 mg/dl (8.4-10.2); Carbon Dioxide 26 mmol/L (22.0-30.0); Cholesterol 188 mg/dl (140-200); Estimated Glomerular Filt Rate 78 ml/min (>60); GFR (African American) 94 ML/MIN (>60); Glucose 116 mg/dl (74-100); Triglycerides 175 mg/dl (30-150); VLDL Cholesterol 35 mg/dL (0-40)
[2023-07-02 10:38] LABS: Albumin Level 4.8 g/dl (3.5-5.0); Chol/HDL Ratio 5.4 (1-3.5); HDL Cholesterol 35 mg/dl (40-60); Total Protein,Serum 7.7 g/dl (6.3-8.2)
[2023-07-02 10:49] LABS: Direct LDL Cholesterol 115.62 mg/dL (100-129)
[2023-07-02 10:56] LABS: Free T4 (Free Thyroxine) 1.03 ng/dl (0.78-2.19)
[2023-07-02 11:08] LABS: Thyroid Stimulating Hormone 0.88 uIU/mL (0.465-4.68)
== END 2023-07-02 23:59 ==
LOC: LAB 09:47
PROVIDERS: PCP Nurse Practitioner; Visit Provider Nurse Practitioner
DX: R06.02 Shortness of breath (principal); R06.00 Dyspnea, unspecified; R60.0 Localized edema; I11.9 Hypertensive heart disease without heart failure; R94.31 Abnormal electrocardiogram [ECG] [EKG]; E11.9 Type 2 diabetes mellitus without complications; E66.01 Morbid (severe) obesity due to excess calories; Z68.42 Body mass index [BMI] 45.0-49.9, adult; Z79.84 Long term (current) use of oral hypoglycemic drugs
CPT/HCPCS: 36415; 80048; 80061; 80076; 84439; 84443; 85025

== ENCOUNTER 2023-07-09 08:09 | Outpatient (CLI) | payer BC, SELFPAY ==
--- NOTE | 2023-07-09 08:09 | NM_ITS ---
APPROVED REPORT Exam: Nuclear Stress Test Indication: abn ecg Patient Location: Outpatient Stress Tech: Carissa Soler GA Tech:FRAN Patrick RT(R)(N) Ht: 5 ft 2 in Wt: 296 lbs Bra Size: 42dd HR: 80 bpm BP: 111/68 mmHg BSA: 2.26 m2 TID: 1.53 BMI: 54.1 History: abn ecg Procedure: Patient received 0.4 mg of intravenous Lexiscan, resting heart rate 80 bpm, resting blood pressure 111/68 mmHg, with Lexiscan maximum heart rate achieved was 98 bpm which is 85 % of the maximum predicted heart rate and blood pressure was 125/69 mmHg. With Lexiscan, patient denied any complaint of chest pain. Cardiac Stress and Resting SPECT Images: Cardiac Stress and Resting SPECT images were obtained using technetium 99m Myoview 32.5 mCi stress and 9.77 mCi at rest. Resting and stress imaging in supine position demonstrate a medium-sized, moderate, fixed perfusion defect in the basal and mid anterior LV wall. This is no longer visualized with prone stress imaging. Findings are suggestive of soft tissue attenuation. However, there is also marked increase in transient ischemic dilatation ratio (TID 1.53), suggestive of possible multivessel disease or balanced ischemia. Gated imaging demonstrates normal global and regional LV systolic function. LVEF is calculated at 69%. Conclusion: Soft tissue attenuation is present. Marked increase in transient ischemic dilatation ratio (TID 1.53), suggestive of possible multivessel disease or balanced ischemia. Gated imaging demonstrates normal global and regional LV systolic function. LVEF is calculated at 69%. Electronically signed by : Maren Flores MD 07/12/2023 06:11:30
--- NOTE | 2023-07-09 09:26 | CA_ITS ---
APPROVED REPORT Exam: Pharmacologic Technologist: Carissa Elena, Ht: 5 ft 5 in Wt: 292 lbs BSA: 2.32 m2 HR: 78 bpm BP: 111/68 mmHg Rhythm: NSR Medical History Medications: Aspirin,,,,, Cefdinir,,,,, BisOPROLOL Fumarate,,,,, BenzONATATE,,,,, Aldactone,,,,, TorSEMIDE,,,,, ColCHIcine,,,,, Multivitamin,,,,, MethylpredNISOne,,,,, Ozempic,,,,, FeNOfibrate nanocrystallized,,,,, Stress Test Details Test: LEXISCAN HR Resting HR: 80 bpm Max Heart Rate (APMHR): 176 bpm Max HR Achieved: 98 bpm Target HR (85% APMHR): 150 bpm % of APMHR: 56 Recovery HR: 86 bpm BP Resting BP: 111/68 mmHg Max BP: 125/69 mmHg Recovery BP: 118.0/73.0 mmHg ECG Resting ECG: NSR Stress ECG: No significant ST changes Arrhythmia: None Clinical Exercise duration: 04:01 min Highest Stage Achieved: Stress ECG Conclusion Symptoms: Mild SOA, head discomfort. No CP. Arrhythmias/Ectopy: None ST-T Changes: No significant ST changes. Conclusion: Unremarkable Lexiscan stress. Myoview images reported separately. Test Summary REST . . . . . . . Resting REST 03:31 . . 80 . 111/ 68 . . Stage 1 . . . . . . . Cardiolite injected Stage 1 01:00 . . 97 . . . . Stage 2 01:00 . . 95 . . . . Stage 3 01:00 . . 93 . 105/ 63 . . Stage 4 01:00 . . 89 . 124/ 71 . . Stage 4 01:01 . . 89 . 124/ 71 . Stop exercise at 04:01 RECOVERY 01:00 . . 96 . 125/ 69 . . RECOVERY 02:00 . . 94 . 125/ 69 . . RECOVERY 03:00 . . 87 . 123/ 70 . . RECOVERY 03:26 . . 86 . 118/ 73 . . Electronically signed by : Maren Flores MD 07/12/2023 06:08:56
[2023-07-09] MEDS: REGADENOSON 0.4MG/5ML SYRINGE 0.400000000000000022 MG IV (10:05)
[2023-07-09] MEDS: ISOTOPE MYOVIEW (PER STUDY) 1 DOSE IV (10:05)
[2023-07-09] MEDS: SODIUM CHLORIDE 0.9% 10ML SYR (RAD ONLY) 10 ML IV ×2 (10:05→10:06)
== END 2023-07-09 23:59 ==
LOC: RAD 08:09
PROVIDERS: PCP Nurse Practitioner; Visit Provider Nurse Practitioner
DX: I10 Essential (primary) hypertension (principal); R94.31 Abnormal electrocardiogram [ECG] [EKG]
CPT/HCPCS: 78452; 93017; 93018; A9502; J2785

== ENCOUNTER 2023-08-12 08:01 | Day surgery (SDC) | payer BC, SELFPAY ==
[2023-08-12] VITALS (12 sets, daily range): BP systolic 116–151; BP diastolic 57–93; PULSE 77–92; RESP 16–19; TEMP 36.4–36.6; O2SAT 94–100; BMI 50.1
--- NOTE | 2023-08-12 07:46 | IR_ITS ---
APPROVED REPORT Patient Location: Outpatient Ski Guide: FRAN Anderson RT (R) PROCEDURES Left heart catheterization Left ventriculogram Selective coronary angiogram INDICATION Abnormal Myoview, Angina pectoris Informed consent was obtained prior to the procedure. COMPLICATIONS NONE Estimated Blood Loss: LESS THAN 10 ML TECHNIQUE One percent lidocaine used to anesthetize the right anterior aspect of the wrist. The right radial artery was accessed via the Seldinger technique. A 6 Mohawk sheath was placed in the right radial artery. 2.5 mg of Verapamil, 800 mcg of nitroglycerin, 1mg Lidocaine and 5000 U Heparin were given through the arterial sheath. The papa catheter was also used to perform left heart catheterization, left ventriculogram and selective coronary angiogram. At the end of the procedure the sheath was removed good hemostasis was achieved using Traclet band, patient was transferred to the postop holding area in stable condition. ANGIOGRAPHIC RESULTS The left main artery Normal The left anterior descending artery Normal The circumflex artery Dominant normal The right coronary artery Vestigial normal The JACOBSEN ventriculogram reveals Normal 65% The left ventricular end-diastolic pressure 25 mmHg IMPRESSION Normal coronary arteries Normal ejection fraction Moderately elevated LVEDP PLAN 1. Medical management 2. Recommend sleep study Electronically signed by : Butch Machuca MD 08/12/2023 10:17:17
[2023-08-12 08:36] LABS: Basophils % 0.6 % (0.1-2.0); Eosinophils # 0.2 K/mm3 (0.0-0.4); Eosinophils % 2.2 % (0.1-12.0); Hematocrit 40.1 % (37.0-47.0); Hemoglobin 13.8 g/dL (12.2-16.2); Lymphocytes # 2.1 K/mm3 (0.7-4.5); Lymphocytes % 27.8 % (10-50); Mean Corpuscular HGB Conc 34.5 g/dL (31.8-35.4); Mean Corpuscular Hemoglobin 30.5 pg (27.0-31.2); Mean Corpuscular Volume 88.4 fl (81-99); Monocytes # 0.4 K/mm3 (0.1-1.0); Monocytes % 4.5 % (1.7-9.3); Platelet Count 353 K/mm3 (142-424); Red Blood Count 4.54 M/mm3 (4.20-5.40); White Blood Count 7.7 K/mm3 (4.8-10.8)
[2023-08-12 08:41] LABS: Chloride 103 mmol/L (98-107); Potassium 5.7 mmoL/L (3.5-5.1); Sodium 137 mmol/L (136-145)
[2023-08-12 08:44] LABS: Anion Gap 12.7 mEq/L (5-15); Blood Urea Nitrogen 14 mg/dl (7-17); Carbon Dioxide 27 mmol/L (22.0-30.0); Creatinine Clearance Estimated 81 mL/min (50-200); Estimated Glomerular Filt Rate 78 ml/min (>60); GFR (African American) 94 ML/MIN (>60); Glucose 118 mg/dl (74-100)
[2023-08-12 08:45] LABS: Calcium 9.2 mg/dl (8.4-10.2)
[2023-08-12] MEDS: HEPARIN 1,000 UNITS/ML 10ML VIAL (CATH LAB) 10000 UNIT IV (09:56)
[2023-08-12] MEDS: LIDOCAINE 1% 10ML MDV 20 ML IJ (09:56)
[2023-08-12] MEDS: 0.9 % SODIUM CHLORIDE 500 ML 25 ML IV (09:56)
[2023-08-12] MEDS: HEPARIN 1,000 UNITS/500ML NS (CATH LAB) 3000 UNIT IV (09:56)
[2023-08-12] MEDS: diphenhydrAMINE 50MG/ML VIAL 50 MG IV (09:57)
[2023-08-12] MEDS: VERAPAMIL 2.5MG/ML 2ML VIAL 2.5 MG IV (09:57)
[2023-08-12] MEDS: NITROGLYCERIN 800MCG/8ML SYR (CATH LAB) 800 MCG IA (09:57)
[2023-08-12 10:04] LABS: HCG Qualitative, Serum Negative (Negative)
[2023-08-12] MEDS: FENTANYL 100MCG/2ML VIAL 50 MCG IV (10:15)
[2023-08-12] MEDS: MIDAZOLAM HCL 1MG/1ML 5ML VIAL 1 MG IV (10:16)
[2023-08-12] MEDS: IOPAMIDOL-370 (76%);100ML BOTTLE 50 ML IV (10:27)
== END 2023-08-12 13:14 | disposition home or self-care (01) ==
PROVIDERS: PCP Nurse Practitioner; Visit Provider Internal Medicine
DX: I20.89 Other forms of angina pectoris (principal); E11.9 Type 2 diabetes mellitus without complications; I10 Essential (primary) hypertension; R06.02 Shortness of breath; R60.9 Edema, unspecified; E66.01 Morbid (severe) obesity due to excess calories; Z68.43 Body mass index [BMI] 50.0-59.9, adult; Z79.899 Other long term (current) drug therapy; R94.39 Abnormal result of other cardiovascular function study; Z82.49 Family history of ischemic heart disease and other diseases of the circulatory system
CPT/HCPCS: 80048; 84703; 85025; 93458; 99152; C1725; C1760; C1769; J1644; Q9967

== ENCOUNTER 2024-11-16 08:17 | Outpatient (CLI) | payer BC, SELFPAY ==
--- NOTE | 2024-11-16 08:21 | US_ITS ---
FINAL REPORT TECHNIQUE: Ultrasound images of the abdomen were obtained. CLINICAL HISTORY: ABD PAIN, BLOATING/LYMPHADONAPATHY COMPARISON: None FINDINGS: ULTRASOUND ABDOMEN There are fatty changes of the liver. Spleen has a normal sonographic appearance. No abnormality of the gallbladder is seen. No biliary ductal dilatation is identified. Kidneys show no evidence of mass or obstruction. Pancreas is not well visualized. IVC and aorta are grossly unremarkable. There is no obvious fluid collection. IMPRESSION: Fatty infiltration of the liver. No evidence of biliary obstruction. No ascites. Reviewed, Interpreted and Dictated by Kathrine Lane MD Transcribed by Mandi Pickett Authenticated and [facility]
--- NOTE | 2024-11-16 08:21 | US_ITS ---
FINAL REPORT CLINICAL HISTORY: .PT HAS FATTY MASS LT AXILLA FINDINGS: Limited sonographic images of the left axilla were obtained. There are normal size lymph nodes in the deep axilla. No solid mass or fluid collection is identified. IMPRESSION: No mass or adenopathy. Reviewed, Interpreted and Dictated by Kathrine Lane MD Transcribed by Tracey Wolf Authenticated and [facility]
== END 2024-11-16 23:59 | disposition home or self-care (01) ==
LOC: RAD 08:18
PROVIDERS: PCP Nurse Practitioner; Visit Provider Nurse Practitioner
DX: R10.9 Unspecified abdominal pain (principal); R14.0 Abdominal distension (gaseous); R59.0 Localized enlarged lymph nodes; K76.0 Fatty (change of) liver, not elsewhere classified
CPT/HCPCS: 76642; 76700

== ENCOUNTER 2025-03-12 12:03 | Outpatient (CLI) | payer BC, SELFPAY ==
--- NOTE | 2025-03-12 12:04 | XR_ITS ---
PROCEDURE INFORMATION: Exam: XR Right Foot Complete; Alignment Exam date and time: 03/12/2025 12:10 PM Age: 44 years old Clinical indication: Pain; Foot; Right; Additional info: Right foot pain, gout TECHNIQUE: Imaging protocol: Radiologic exam of the right foot. Views: 3 or more views. Total images: 3 COMPARISON: No relevant prior studies available. FINDINGS: Bones/joints: Hallux valgus deformity. Calcaneal spurs are present. Degenerative changes of the interphalangeal joints. No evidence of acute fracture or dislocation. Soft tissues: Dorsal soft tissue swelling. IMPRESSION: 1. Hallux valgus deformity. 2. Dorsal soft tissue swelling. 3. Degenerative changes of the interphalangeal joints. 4. No evidence of acute fracture or dislocation.
--- NOTE | 2025-03-12 12:04 | XR_ITS ---
PROCEDURE INFORMATION: Exam: XR Left Foot Complete; Alignment Exam date and time: 03/12/2025 12:10 PM Age: 44 years old Clinical indication: Pain; Foot; Left; Additional info: Left foot pain, gout TECHNIQUE: Imaging protocol: Radiologic exam of the left foot. Views: 3 or more views. Total images: 3 COMPARISON: No relevant prior studies available. FINDINGS: Bones/joints: Hallux valgus deformity. Degenerative changes of the interphalangeal joints. No evidence of acute fracture or dislocation. Calcaneal spurs are present. Soft tissues: Mild soft tissue swelling. IMPRESSION: 1. Hallux valgus deformity. 2. Mild soft tissue swelling. 3. Degenerative changes of the interphalangeal joints. 4. No evidence of acute fracture or dislocation.
--- OUTSIDE RECORDS SUMMARY | 2025-03-12 12:05 | XMS_ITS | Encounter Summary ---
Author Organization Healthcare Address [address] [place] [address] Care Team Providers Care Loom Stop Checker Name Role Phone Deniz Buckley MD Primary Care Provider [phone] Encounter Details Date Type Department Care Team (Late st Contact Info) Description 11/28/[address] [facility] Interventional Pain Medicine [address] [place] [address] Mike Stevens, [address] [facility] [address] [place] [address] Social History Tobacco Use Types Packs/Day Years Used Date Smoking Tobacco: Never Smokeless Tobacco: Never Alcohol Use Standard Drinks/Week Comments No 0 (1 standard drink = 0.6 oz pur e alcohol) Comments Unknown Sex and Gender Information Value Date Recorded Sex Assigned at Not on file Legal Sex Female 8:33 PM EDT Gender Identity Not on file Sexual Orientation Not on file documented as of this encounter Plan of Treatment Not on file documented as of this encounter Visit Diagnoses Not on filedocumented in this encounter Care Teams Loom Stop Checker Relationship Specialty Start Date End Date Deniz Buckley MD [address] [place] [address] PCP - General 11/09/20 documented as of this encounter
--- OUTSIDE RECORDS SUMMARY | 2025-03-12 12:05 | XMS_ITS | Clinical Summary ---
Author Organization Healthcare Address [address] [place] [address] Care Team Providers Care Final Inspector Balance Wheel Name Role Phone Deniz Buckley MD Primary Care Provider [phone] Allergies Active Allergy Reactions Criticality Noted Date Comments Codeine Itching Medium 10/16/2014 Acetaminophen-Codeine Itching Medium 06/16/2014 Medications bisoprolol (Zebeta) 5 MG tablet 05/01/2020 Active diazePAM (Valium) 5 MG tablet TAKE 1 TABLET 1 HOUR PRIOR TO PROCEDURE. 10/19/2020 Active ibuprofen 800 MG tablet One tablet by mouth every 8-12 hours as needed for pain 06/06/2020 Active methocarbamol (Robaxin) 500 MG tablet 1 po TID prn spasms 06/06/2020 Active progesterone (Prometrium) 200 MG capsule 05/01/2020 Active spironolactone (Aldactone) 50 MG tablet TAKE 1 TABLET TWICE DAILY. 09/10/2017 Active THYROID PO 05/01/2020 Active TORSEMIDE PO 05/01/2020 Active bisoprolol (Zebeta) 10 MG tablet 11/24/2020 Active Active Problems Problem Noted Date Diagnosed Date Cervical spondylosis 10/19/2020 Status post cervical spinal fusion 01/25/2018 Edema 11/04/2017 Cervical prolapse 11/04/2017 Female bladder prolapse 11/04/2017 Cervical radiculopathy 11/03/2017 Herniation of nucleus pulposus 11/03/2017 Cervicalgia 10/15/2017 Morbid obesity 09/18/2014 Immunizations Immunization Administration Dates Next Due Tdap 10/17/2014 Family History Medical History Relation Name Comments Hypertension Maternal Grandmother Hypertension Mother Hypertension Sister Relation Name Status Comments Maternal Grandmother Mother Sister Social History Tobacco Use Types Packs/Day Years Used Date Smoking Tobacco: Never Smokeless Tobacco: Never Alcohol Use Standard Drinks/Week Comments No 0 (1 standard drink = 0.6 oz pur e alcohol) Comments Unknown Sex and Gender Information Value Date Recorded Sex Assigned at Not on file Legal Sex Female 8:33 PM EDT Gender Identity Not on file Sexual Orientation Not on file Last Filed Vital Signs Vital Sign Reading Time Taken Comments Blood Pressure 136/65 12/07/2020 3:22 PM EDT Pulse 83 12/07/2020 3:22 PM EDT Temperature 36.1 C (96.9 F) 12/07/2020 1:58 PM EDT Respiratory Rate 18 12/07/2020 3:22 PM EDT Oxygen Saturation 99% 12/07/2020 3:22 PM EDT Inhaled Oxygen Concentration - - Weight 110 kg (242 lb 15.9 oz) 06/06/2020 1:31 P M EST Height 157.5 cm (5' 2 ) 05/01/2020 9:40 AM EST Body Mass Index 44.44 05/01/2020 9:40 AM EST Plan of Treatment Health Maintenance Due Date Last Done Comments [facility]-Depression Screening 1980 [facility]-Infant/Child/Adol SDOH Screenings 1980 [facility]- SDOH Screenings 1997 [facility]-Adult SDOH Screenings 1997 [facility]-Hepatitis B Vaccines (1 of 3 - 19+ 3-dose series) 1998 HPV Vaccines (1 - 3-dose SCD M series) 2006 [facility]-Pap Smear 11/04/2020 11/04/2017 [facility]-Cervical Cancer Screening 11/04/2022 [facility]-HPV/Cotest 11/04/2022 11/04/2017 CT Colonography 2024 Colonoscopy 2024 FIT-DNA 2024 FIT 2024 FOBT 2024 Sigmoidoscopy 2024 [facility]-Colorectal Cancer Screening 2024 [facility]-DTaP,Tdap,and Td Vaccine s (2 - Td or Tdap) 10/17/2024 10/17/2014 [id number] Vaccine (1 - 20 24-25 season) 2025 [facility]-Influenza Vaccine (#1) 2025 [facility]-Zoster Vaccines (1 of 2) 2029 [facility]-HIB Vaccines Aged Out No longer e ligible based on patient's age to complete this topic [facility]-Hepatitis A Vaccines Aged Out No longer eligible based on patient's age to complete this topic [facility]-IPV Vaccines Aged Out No longer e ligible based on patient's age to complete this topic [facility]-Pneumococcal Vaccine: Pediatrics (0 to 5 Years) and At-Risk Patients (6 to 49 Years) Aged Out No long er eligible based on patient's age to complete this topic [facility]-Rotavirus Vaccines Aged Out No lo nger eligible based on patient's age to complete this topic Procedures Procedure Name Priority Date/Time Associated Diagnosis Comments CYTO DATA CONVERSION Routine 11/04/2017 12:00 AM EDT from Last 3 Months or Most Recently Relevant to Health Maintenance Results * Cytology (11/04/2017 12:00 AM EDT) 11/04/2017 11/05/2017 9:2 2 AM EDT Narrative SUNQUEST - 11/09/2017 2:12 PM EDT [facility] MR #: [id number] [facility] [address] [place], [place] [address] 1980 (Age: 37) FW Collect Date: 11/04/2017 00:00 Receipt Date: 11/05/2017 09:22 Page 1 DEPARTMENT OF PATHOLOGY AND LABORATORY MEDICINE CYTOPATHOLOGY REPORT Email: [email or web address] ATTENDING MD/Practitioner: Justin Dobbins MD Service: OBE Location: [facility] Reported: 11/09/2017 14:12 Collected: 11/04/2017 00:00 INTERPRETATION A. THIN PREP (CERVICAL/VAGINAL): NEGATIVE FOR INTRAEPITHELIAL LESION OR MALIGNANCY. ANUCLEATED SQUAMES (HYPERKERATOSIS). SATISFACTORY FOR EVALUATION; ENDOCERVICAL/ TRANSFORMATION ZONE COMPONENT PRESENT. Slide scanned and imaged by [employer] ThinPrep Imaging System with manual review of all selected hayden. Please see the ASCCP website (www.asccp.org) for followup recommendations. Correlation with the results of HPV testing is also suggested (please call Microbiology at [phone] for results). Electronically Signed Out By BHARGAVI Andrade (ASC) BHARGAVI Andrade (ASCP) Cervical cytology is a screening test primarily for squamous cancers and precursors and has associated false negative and positive results. New technologies such as liquid based sampling may decrease but will not eliminate all false negative results. Regular screening and follow-up of unexplained clinical signs and symptoms are recommended to minimize false negative results. Please see the ASCCP website (www.asccp.org) for followup recommendations. If HPV testing was requested, correlation with the results is suggested (please call Microbiology at [phone] for results). CLINICAL INFORMATION: Menstrual History: Dysfunctional uterine bleeding Date of Last Menstrual Period: {Not Provided} Contraceptive History: control pills Other Clinical Conditions: HPV testing requested. Clinical information indicates patient has high risk factor(s). Other: bladder prolapse Insufficient amount of specimen left after cytology processing, unable to send for HPV/DNA testing if requested. Recommend recollect using the [employer]ene Cervical Swab Collection Kit . SPECIMEN DESCRIPTION: A: THIN PREP (CERVICAL/VAGINAL) THIN PREP PROCESS CELLULAR ENHANCEMENT ICD: F: A; DX IMAGE 42785 SNOMED CODES: A; [id number] In cases where a pathologist has signed out the report, the service has been rendered in part by a resident. The signing pathologist has performed and is responsible for the reported pathologic evaluation. Og Dobbins MD LAB PATHOLOGY ORDERABLES Final Result Performing Organization Address City/State/[facility] Co de Phone Number SUNQUEST from Last 3 Months or Most Recently Relevant to Health Maintenance Insurance DARLYN Care Teams Final Inspector Balance Wheel Relationship Specialty Start Date End Date Deniz Buckley MD [address] [place] [address] PCP - General 11/09/20
== END 2025-03-12 23:59 | disposition home or self-care (01) ==
LOC: RAD 12:04
PROVIDERS: PCP Nurse Practitioner; Visit Provider Podiatrist
DX: M20.12 Hallux valgus (acquired), left foot (principal); M20.11 Hallux valgus (acquired), right foot; M19.072 Primary osteoarthritis, left ankle and foot; M19.071 Primary osteoarthritis, right ankle and foot; M10.9 Gout, unspecified; M79.89 Other specified soft tissue disorders
CPT/HCPCS: 73630

== ENCOUNTER 2025-05-23 13:16 | Outpatient (CLI) | payer BC, SELFPAY ==
[2025-05-23 09:09] VITALS: BMI 55.2
--- NOTE | 2025-05-23 13:19 | XR_ITS ---
FINAL REPORT CLINICAL HISTORY: preoperative clearance hx of : HTN (hypertension) KATHYA on CPAP Preoperative clearance Tachycardia SOB (shortness of breath) Edema COMPARISON: 05/07/2013 FINDINGS: PA and lateral views of the chest were obtained. The cardiac and mediastinal silhouettes are within normal limits. There is a right infrahilar opacity which could be atelectasis or pneumonia. There is no pleural effusion or pneumothorax. No acute osseous abnormality is identified. IMPRESSION: Right infrahilar atelectasis versus pneumonia. Recommend continued follow-up. Reviewed, Interpreted and Dictated by Betsy Schuler MD Transcribed by Tracey Wolf Authenticated and . [facility]
[2025-05-23 13:28] VITALS: BMI 54.1
--- NOTE | 2025-05-23 13:33 | ECG_ITS ---
APPROVED REPORT Exam: Resting ECG HR:82 bpm ECG Measurements Heart Rate 82 AXES AZ 148 P 56 QRSd 84 QRS 63 QT 364 T 30 QTc 402 Conclusion SINUS RHYTHM LOW QRS VOLTAGE IN PRECORDIAL LEADS [QRS DEFLECTION < 1.0 mV IN CHEST LEADS] NONSPECIFIC T-WAVE ABNORMALITY BORDERLINE ECG UNCONFIRMED REPORT Electronically signed by : Deniz Verde MD 05/24/2025 08:43:03
[2025-05-23 13:51] LABS: Hematocrit 37.0 % (37.0-47.0); Hemoglobin 12.8 g/dL (12.2-16.2); Mean Corpuscular HGB Conc 34.6 g/dL (31.8-35.4); Mean Corpuscular Hemoglobin 29.8 pg (27.0-31.2); Mean Corpuscular Volume 86.0 fl (81-99); Platelet Count 402 K/mm3 (142-424); Red Blood Count 4.30 M/mm3 (4.20-5.40); White Blood Count 7.9 K/mm3 (4.8-10.8)
[2025-05-23 13:53] LABS: Chloride 98 mmol/L (98-107); Potassium 3.8 mmoL/L (3.5-5.1); Sodium 141 mmol/L (136-145)
[2025-05-23 13:56] LABS: Anion Gap 17.8 mEq/L (5-15); Blood Urea Nitrogen 23 mg/dl (7-17); Calcium 9.9 mg/dl (8.4-10.2); Carbon Dioxide 29 mmol/L (22.0-30.0); Creatinine Clearance Estimated 56 mL/min (50-200); Creatinine,Serum 1.00 mg/dl (0.52-1.04); Estimated Glomerular Filt Rate 60 ml/min (>60); GFR (African American) 73 ML/MIN (>60); Glucose 105 mg/dl (74-100)
[2025-05-23 14:57] LABS: RBC Morphology Normal; Total Cells Counted 100
== END 2025-05-23 23:59 | disposition home or self-care (01) ==
LOC: PREOP 13:17
PROVIDERS: PCP Nurse Practitioner; Visit Provider Otolaryngology
DX: Z01.810 Encounter for preprocedural cardiovascular examination (principal); Z01.811 Encounter for preprocedural respiratory examination; Z01.812 Encounter for preprocedural laboratory examination; R94.31 Abnormal electrocardiogram [ECG] [EKG]; R91.8 Other nonspecific abnormal finding of lung field
CPT/HCPCS: 71046; 80048; 85007; 85014; 85018; 85048; 85049; 93005

== ENCOUNTER 2025-05-30 07:59 | Day surgery (SDC) | payer BC, SELFPAY ==
[2025-05-23 14:25] VITALS: BMI 54.1
--- NOTE | 2025-05-29 13:38 | SUR.PREOP ---
Pt called and notified of change in surgery time since PAT appointment.
[2025-05-30] VITALS (9 sets, daily range): BP systolic 98–165; BP diastolic 70–105; PULSE 80–89; RESP 16–20; TEMP 36.3–36.4; O2SAT 93–98; BMI 54.1
--- NOTE | 2025-05-30 08:49 | P.PNANES_ITS ---
[facility] Disclaimer: The information contained in this section may have been updated after the patient was seen, as this information can be updated by other users. Medical History Lymphedema of lower extremity Recurrent streptococcal tonsillitis Hypertrophy of tonsils Pt uses a CPAP for KATHYA-will have a surgical consult with the ENT surgeons to evaluate the benefits and risk Chronic tonsillitis Sore throat Gout of both feet Bilateral foot pain HTN (hypertension) KATHYA on CPAP Preoperative clearance Tachycardia SOB (shortness of breath) Edema Nephritic syndrome Surgical History History of H/O breast surgery Hx of neck surgery Family History Other No significant family history Social History (Updated 05/30/25 @ 08:33 by Candace Oconnor RN) Smoking Status: Never smoker alcohol intake: never substance use type: denies use current occupational status: employed Travel in the last 8 weeks?: None household members: spouse and children housing: house Have you lived/traveled outside US in past 30 days?: No Contact w/someone who lives/traveled outside US past 30 days?: No Exposure to someone with infectious disease in past 14 days?: No Do you have a fever (greater than 100.4 F or 38 C)?: No Have you tested positive for COVID-19?: No Exposed to someone with COVID-19 in past 14 days?: No Do you have a sore throat?: No Do you have a cough?: No Do you have any weakness?: No Are you experiencing any nausea/vomitting?: No Do you have any diarrhea?: No Are you experiencing any unusual bleeding?: No Do you have any muscle aches/pain?: No Do you have any abdominal pain?: No Are you experiencing loss of taste or smell?: No [facility] Anesthesia Checklist Patient Identification Patient Identification: Arm Band and Verbal (Name & ) Structural Data Admitted From: Home Planned Operative Procedure/s: Tonsillectomy Consent for Planned Operative Procedure(s) Verified: Yes Verified Documents: Surgical Consent NPO Status Verified Time NPO: 00:00 Chart Verification Results Verified: CBC, BMP and ECG Additional verifications Fingerstick Blood Glucose: 124 Anesthesia Reactions: No Airway Assessment Mallampati Score:: Class II C-Spine Mobility Assessed: Yes TMJ Mobility Assessed: Yes Dentition: Good Dentition Neurological Assessment Level of Consciousness: Awake, Alert and Appropriate Hx Seizures: No Numbness or tingling in extremities: No Anesthesia Plan Anesthesia Risk discussed: Yes Anesthesia Plan: Verified ASA Class: III Anesthesia Type: General
[2025-05-30 08:56] LABS: HCG Qualitative, Serum Negative (Negative)
[2025-05-30] MEDS: LACTATED RINGERS 1000ML 1,000 ML 25 ML IV (10:29)
[2025-05-30] MEDS: BUPIVACAINE 0.5% W/EPI 1:200,000 30ML VIAL 30 ML IJ (12:35)
--- NOTE | 2025-05-30 13:04 | P.PNANES_ITS ---
[facility] Anesthesia Record Part I Anesthesia Record I Intake, IV Amount: 400 Hydration: Adequate Estimated blood loss (mL): 10 Urine output (mL): 0 Blood Pressure: 154/71 SaO2: 93 Pulse Rate: 87 Airway Patency: Patent Respiratory Rate: 18 Temperature: 97.4 F Patient is:: Awake and Stable Stable to PACU at:: 13:13
--- NOTE | 2025-05-30 13:08 | EXP.OP.NOTE ---
Date of procedure: 05/30/25 Pre-op Diagnosis:: Chronic tonsillitis Post-op Diagnosis:: Chronic tonsillitis Procedure performed:: Tonsillectomy Surgeon:: Gray Ann MD Anesthesia: GETA Estimated blood loss (mL): 0 Operative findings:: 3+ inflamed tonsils bilaterally Operative note:: The patient was brought to the operating room and after adequate general anesthesia the mouth was draped in the usual sterile fashion. A McIvor mouthgag was placed. Tonsillectomy was then performed in the plane defined by the tonsillar capsule and superior constrictor and this was done with electrocautery and this was done bilaterally. Hemostasis was established with suction Bovie and then tonsillar fossa was infiltrated with half percent Marcaine with epinephrine bilaterally and the procedure concluded. All counts correct and blood loss minimal Condition: stable Disposition: PACU Complications:: No complication
--- NOTE | 2025-05-30 15:09 | SUR.PHASEII ---
patient c/o swelling in nose and into sinus passages with diffculty to breath out through nose, patient reports that she is able to breathe in okay but just breathing out through nose. also c/o secretions. patient denied soa, pulse ox noted >95% during post op time. Dr. Ann was made aware of patient's c/o. per Dr. Ann patient may take nasal decongestant and to instruct patient that feeling is normal, the swelling will decrease. reported Dr. Ann's instructions to patient upon discharge, patient verbalized understanding.
[2025-05-30 17:53] LABS: POC Glucose,Bedside 124 gm/dL (70-110)
--- NOTE | 2025-05-31 12:47 | EXP.ANES.II ---
[facility] Anesthesia Record Part II Anesthesia Record Part II Discharge Time: 14:04 Destination: Surgical Day Care (OP Surgery) PACU nurse assessment reviewed?: Yes Patient Condition:: Good Anesthesia Complications:: None Swallowing reflex intact?: Yes Airway Patency: Patent Cyanosis?: No Blood Pressure: 153/74 SaO2: 96 Respiratory Rate: 20 Pulse Rate: 85 Temperature: 97.5 F Mental Status: Alert & Oriented Pain level:: 0 Nausea and/or vomitting:: None Intake, IV Amount: 0 Hydration: Adequate
[2025-05-31 12:48] VITALS: BP 153/74; PULSE 85; RESP 20; TEMP 36.4; O2SAT 96
== END 2025-05-30 14:04 | disposition home or self-care (01) ==
PROVIDERS: PCP Nurse Practitioner; Visit Provider Otolaryngology
PROC: (CPT 42826; principal; 2025-05-30 09:30)
DX: J35.01 Chronic tonsillitis (principal); M10.9 Gout, unspecified; I10 Essential (primary) hypertension; G47.33 Obstructive sleep apnea (adult) (pediatric); Z88.5 Allergy status to narcotic agent; Z79.899 Other long term (current) drug therapy; Z79.82 Long term (current) use of aspirin; Z79.51 Long term (current) use of inhaled steroids
CPT/HCPCS: 42826; 82962; 84703; J1100; J1200; J2003; J2250; J2405; J2704; J3010; J7120